=== PATIENT | male | born 2000 | race Caucasian/White ===

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

== ENCOUNTER 2020-02-08 16:56 | Emergency (ER) | payer OTHER, SELFPAY ==
[2020-02-08 17:05] VITALS: BP 134/76; PULSE 86; RESP 19; TEMP 36.9; O2SAT 99; BMI 28.1
[2020-02-08 17:13] LABS: UTC Strep Screen (Rapid) Negative (Negative)
--- NOTE | 2020-02-08 17:15 | HMH.EDUTC ---
[facility] [place] Disposition Clinical Impression: Tonsillitis, Streptococcus exposure Disposition: Home, Self-Care Condition on Discharge: Good Instructions: DI for Strep Throat Prescriptions: Amoxicillin [Amoxicillin 875MG Tab] 875 mg PO Q12H #20 tab Transmission Status: Pending to [id number] Referrals: PCP,No [Primary Care Provider] - Time of Disposition: 17:21 Medical Decision Making - Louie Inquiry Pt receiving controlled substance: No Vital Signs: 02/08/20 17:05 Temperature 98.4 F Temperature Source Oral Pulse Rate [Radial] 86 Respiratory Rate 19 Blood Pressure [Right Arm] 134/76 Blood Pressure Mean [Right Arm] 95 Blood Pressure Source [Right Arm] Automatic Cuff Blood Pressure Position [Right Arm] Sitting 02 Sat by Pulse Oximetry 99 Oxygen Delivery Method Room Air - Lab Data Lab results reviewed: Yes: I reviewed the patient's lab results. Lab Results 02/08/20 17:07: Strep Scn Rapid Clinic Negative Orders (Tests/Meds): ORDERS Category Date Time Status Strep Screen Confirmation Stat Micro 02/08/20 17:07 Received [facility] [place] HPI - General Stated complaint: Sore throat, cough Time Seen by Provider: 02/08/20 17:15 Mode of Arrival: Ambulatory Source of Information: Patient Limitations: No Limitations Description of Symptoms (Recalled from Triage Doc. by RN): Sore throat. States that he has been exposed to strep recently HEENT Symptoms (Recalled from RN notes): Yes Resp Symptoms (Recalled from RN notes): No Skin Symptoms (Recalled from RN notes): No MS Symptoms (Recalled from RN notes): No Functional Status (Recalled from RN notes): wnl - History of Present Illness Provider Complaint: Sore throat X 3 days. No fever, but boyfriend and sister both have strep. Sister also tested positive for COVID19 but he got tested yesterday at so that test is already pending. Boyfriend diagnosed with strep yesterday. Sore throat worse at night. Mild cough. No loss of sense of taste or smell. Onset (ago): day(s) (3) Location: mouth Radiation: non-radiation Relieving factors: none Exacerbating factors: none Associated symptoms: cough Treatments prior to arrival: none - Related Data Previous Rx's Medication Instructions Recorded Amoxicillin [Amoxicillin 875MG 875 mg PO Q12H #20 tab 02/08/20 Tab] Allergies Allergy/AdvReac Type Severity Reaction Status Date / Time No Known Allergies Allergy Unverified 05/09/17 15:06 - Worker's Comp Is this a Worker's Comp case?: No [facility] History - Hepatitis A Screen Drug use history?: No High risk sexual behaviors?: No History of sexually transmitted infection?: No Currently employed?: No Childcare worker?: No Do you have indoor plumbing?: Yes Do you have electricity?: Yes Attestation statement:: This patient has been screened for Hepatitis A risk factors. I have reviewed the patient's past medical history: No - Social History Alcohol Intake: never Occupational Status: other ROS Obtained: Yes All systems reviewed & no additional complaints - Constitutional Constitutional: Denies body ache, Denies chills, Denies fever(s) - ENT Ears, Nose, Mouth, and Throat: Reports sore throat - Respiratory Respiratory: Yes cough Physical Exam - General General appearance: alert, in no apparent distress - Head Head exam: atraumatic, normocephalic, normal inspection - Eye Eye exam: Present: normal appearance, PERRL, EOMI - ENT ENT exam: Present: normal exam, normal oropharynx, mucous membranes moist, TM's normal bilaterally, normal external ear exam - Expanded ENT Exam Throat exam: Present: tonsillar erythema, tonsillomegaly - Neck Neck exam: Present: normal inspection, full ROM, trachea midline. Absent: meningismus, lymphadenopathy - Chest Chest inspection: Present: normal inspection, symmetric chest wall rise. Absent: tenderness - Respiratory Respiratory exam: Present: normal lung sounds bilaterall
[2020-02-08 17:27] VITALS: BP 134/76; PULSE 86; RESP 19; TEMP 36.9; O2SAT 99
== END 2020-02-08 17:28 | disposition home or self-care (01) ==
PROVIDERS: Emergency Provider Physician Assistant
DX: J03.90 Acute tonsillitis, unspecified (principal); Z20.818 Contact with and (suspected) exposure to other bacterial communicable diseases
CPT/HCPCS: 87880; 99201

== ENCOUNTER 2021-06-01 15:32 | Emergency (ER) | payer OTHER, SELFPAY ==
[2021-06-01 17:19] VITALS: BP 138/90; PULSE 108; RESP 16; TEMP 37.1; O2SAT 97; BMI 34.4
--- NOTE | 2021-06-01 17:24 | HMH.EDUTC ---
[facility] [place] Clinical Impression: Otitis media Qualifiers: Otitis media type: unspecified Laterality: left Qualified Code(s): H66.92 - Otitis media, unspecified, left ear Disposition: Home, Self-Care Condition on Discharge: Good Instructions: Middle Ear Infection, Methylprednisolone, Amoxicillin and Clavulanic Acid Additional Instructions: *Monitor Temp, Over the counter Motrin or Tylenol as directed/as needed Tylenol every 4 hours and Motrin every 6 hours (as long as your family doctor has told you that you can take it) for fever or pain. and straight to ER if unable to lower temp less than 101.0 after medication given Take medication as prescribed *Sleep elevated *Humidifier/Vaporizer *Flonase 2 sprays in each nostril daily but be aware that it may take 2-3 days before you notice improvement return if needed Follow up IMMEDIATELY for new or worsening symptoms or no Noticeable improvement over the next 48-72 hours. 911 for difficulty breathing or swallowing Prescriptions: Amoxicillin/Potassium Clav [Augmentin 875-125 Tablet] 1 tab PO Q12H 10 Days #20 tab Transmission Status: Pending to [facility] Fluticasone Propionate [Flonase 50mcg nasal spray 16gm] 1 spr NS DAILY #1 each Transmission Status: Pending to [facility] methylPREDNISolone [Medrol 4mg tab] 4 mg PO DIRECTED #21 tab Transmission Status: Pending to [facility] Referrals: Provider,Referral, MD [Primary Care Provider] - As needed Time of Disposition: 17:32 Medical Decision Making - Louie Inquiry Pt receiving controlled substance: No Louie was queried for this patient: No Vital Signs: 06/01/21 17:19 Temperature 98.7 F Temperature Source Oral Pulse Rate [Right Radial] 108 H Respiratory Rate 16 Blood Pressure [Right Arm] 138/90 Blood Pressure Mean [Right Arm] 106 Blood Pressure Source [Right Arm] Automatic Cuff Blood Pressure Position [Right Arm] Sitting 02 Sat by Pulse Oximetry 97 Oxygen Delivery Method Room Air [facility] [place] - General Stated complaint: cough, runny nose, congestion, hearing loss Time Seen by Provider: 06/01/21 17:24 Mode of Arrival: Ambulatory Source of Information: Patient Limitations: No Limitations Description of Symptoms (Recalled from Triage Doc. by RN): C/O left ear pain HEENT Symptoms (Recalled from RN notes): Yes (Left ear pain) Resp Symptoms (Recalled from RN notes): No Skin Symptoms (Recalled from RN notes): No MS Symptoms (Recalled from RN notes): No Functional Status (Recalled from RN notes): n/a - History of Present Illness Provider Complaint: Patient states that he has been having some sinus congestion and pain in his left ear State that for the last several days he has been having muffled hearing in his left ear and pain that has continued to get worse State that today he was still having pain in his ear so he came in - Related Data Previous Rx's Medication Instructions Recorded sertraline 100 mg tablet 100 mg PO DAILY #90 tab 05/05/21 Amoxicillin/Potassium Clav 1 tab PO Q12H 10 Days #20 tab 06/01/21 [Augmentin 875-125 Tablet] Fluticasone Propionate [Flonase 1 spr NS DAILY #1 each 06/01/21 50mcg nasal spray 16gm] methylPREDNISolone [Medrol 4mg 4 mg PO DIRECTED #21 tab 06/01/21 tab] Allergies Allergy/AdvReac Type Severity Reaction Status Date / Time No Known Allergies Allergy Unverified 05/06/20 12:54 - Worker's Comp Is this a Worker's Comp case?: No [facility] History - Hepatitis A Screen Drug use history?: No High risk sexual behaviors?: No History of sexually transmitted infection?: No Currently employed?: No Childcare worker?: No Do you have indoor plumbing?: Yes Do you have electricity?: Yes Attestation statement:: This patient has been screened for Hepatitis A risk factors. I have reviewed the patient's past medical history: Yes - Social History Smoking Status: Current every day smoker Tobacco Type: cigarettes (about 2
[2021-06-01 17:51] VITALS: BP 138/90; PULSE 108; RESP 16; TEMP 37.1; O2SAT 97
== END 2021-06-01 17:52 | disposition home or self-care (01) ==
PROVIDERS: Emergency Provider Nurse Practitioner
DX: H66.92 Otitis media, unspecified, left ear (principal); F17.290 Nicotine dependence, other tobacco product, uncomplicated
CPT/HCPCS: 99202; G0463

== ENCOUNTER → 2021-06-03 10:12 | Outpatient (CLI) | payer OTHER, SELFPAY | PROVIDERS: Visit Provider Nurse Practitioner | DX: U07.1 COVID-19 (principal) | CPT/HCPCS: C9803; U0003; U0005 ==

== ENCOUNTER → 2021-06-09 10:29 | Outpatient (CLI) | payer OTHER, SELFPAY | PROVIDERS: Visit Provider Specialist | DX: G47.30 Sleep apnea, unspecified (principal); R06.83 Snoring | CPT/HCPCS: 95806 ==

== ENCOUNTER 2021-12-10 13:26 | Emergency (ER) | payer OTHER, SELFPAY ==
[2021-12-10 13:26] VITALS: BP 136/74; PULSE 67; RESP 19; TEMP 37.1; O2SAT 99; BMI 28.5
--- NOTE | 2021-12-10 14:00 | HMH.EDUTC ---
[facility] – [place] Disposition Clinical Impression: Poison madeline dermatitis Disposition: Home, Self-Care Condition on Discharge: Good Instructions: Poison Madeline, Poison [place], Poison [place], DI for Poison Madeline Allergy Additional Instructions: Start oral steriods tomorrow Over the counter Benadryl may help with itching Oatmeal bathes may help to dry the rash Calamine lotion may help to dry the rash Return if needed Straight to ER if any life threatening symptoms Prescriptions: methylPREDNISolone [Medrol 4mg tab] 4 mg PO DIRECTED #21 tab Transmission Status: Received by [facility] Referrals: Provider,Referral, [Primary Care Provider] - As needed Time of Disposition: 14:06 Medical Decision Making - Luoie Inquiry Pt receiving controlled substance: No Louie was queried for this patient: No Vital Signs: 12/10/21 13:26 12/10/21 14:10 Temperature 98.7 F 98.7 F Temperature Source Oral Pulse Rate 67 Pulse Rate [Left Radial] 67 Respiratory Rate 19 19 Blood Pressure 136/74 Blood Pressure [Right Arm] 136/74 Blood Pressure Mean [Right Arm] 94 Blood Pressure Source [Right Arm] Automatic Cuff Blood Pressure Position [Right Arm] Sitting 02 Sat by Pulse Oximetry 99 Oxygen Delivery Method Room Air Room Air Orders (Tests/Meds): ED MEDICATIONS Discontinued Medications Generic Name Dose Route Start Last Admin Trade Name Lacie PRN Reason Stop Dose Admin Methylprednisolone Sodium Succinate 125 mg 12/10/21 14:03 12/10/21 14:13 Methylprednisolone Sod Succ 125mg Vial IM 12/10/21 14:04 125 mg ONCE ONE Administration [facility] [place] HPI - General Stated complaint: poison madeline Time Seen by Provider: 12/10/21 14:00 Mode of Arrival: Ambulatory Source of Information: Patient Limitations: No Limitations Description of Symptoms (Recalled from Triage Doc. by RN): c/o poison madeline all over since yesterday HEENT Symptoms (Recalled from RN notes): No Resp Symptoms (Recalled from RN notes): No Skin Symptoms (Recalled from RN notes): Yes MS Symptoms (Recalled from RN notes): No Functional Status (Recalled from RN notes): na - History of Present Illness Provider Complaint: Patient states that he has poison madeline all over his arms and starting to spread on his neck and face State that he wanted to come in and get it treated before it got as bad as it did before and was on his lips - Related Data Previous Rx's Medication Instructions Recorded sertraline 100 mg tablet 100 mg PO DAILY #90 tab 07/08/21 methylPREDNISolone [Medrol 4mg 4 mg PO DIRECTED #21 tab 12/10/21 tab] Allergies Allergy/AdvReac Type Severity Reaction Status Date / Time No Known Allergies Allergy Verified 07/07/21 10:30 - Worker's Comp Is this a Worker's Comp case?: No [facility] History - Hepatitis A Screen Attestation statement:: This patient has been screened for Hepatitis A risk factors. I have reviewed the patient's past medical history: Yes Medical History: Reports:: Anxiety, Depression Other Medical History: Reports: Other (sivan) Other Surgeries: Yes: Other Amputation: No Fractures: No Comment: oral surgery-wisdom teeth - Social History Smoking Status: Current every day smoker Tobacco Type: cigarettes Alcohol Intake: never Alcohol Intake Frequency:: other Substance Use Type: denies use Occupational Status: employed Housing: house Household Members: significant other - Psychiatric History Pschychiatric History:: Reports:: Anxiety, Depression Family Hx:: No significant family history ROS Obtained: Yes All systems reviewed & no additional complaints, Yes Systems reviewed as appropriate & no additional complaints - Constitutional Constitutional: Reports system reviewed and no additional complaints, except as docu - ENT Ears, Nose, Mouth, and Throat: Reports system reviewed and no additional complaints, except as docu - Cardiovascular Cardiovascular: Reports system reviewed and no additional complaints, exce
[2021-12-10 14:10] VITALS: BP 136/74; PULSE 67; RESP 19; TEMP 37.1; O2SAT 99
== END 2021-12-10 14:35 | disposition home or self-care (01) ==
PROVIDERS: Emergency Provider Nurse Practitioner
DX: L23.7 Allergic contact dermatitis due to plants, except food (principal); R06.02 Shortness of breath; F32.A Depression, unspecified; F41.9 Anxiety disorder, unspecified; F17.210 Nicotine dependence, cigarettes, uncomplicated; Z79.52 Long term (current) use of systemic steroids
CPT/HCPCS: 96372; 99213; G0463

== ENCOUNTER 2022-12-11 15:42 | Emergency (ER) | payer OTHER, SELFPAY ==
[2022-12-11 15:50] VITALS: BP 134/89; PULSE 97; RESP 20; TEMP 36.9; O2SAT 98; BMI 40.3
--- NOTE | 2022-12-11 15:57 | EXP.UTC ---
Discharge Plan Disposition Patient Disposition: Home, Self-Care Condition: Good Prescriptions Prescriptions: New amoxicillin 875 mg tablet 875 mg PO BID Qty: 20 0RF ciprofloxacin-dexamethasone [Ciprodex] 0.3-0.1 % drops,suspension 4 drp otic (ear) BID 7 Days Qty: 7.5 0RF Rx Instructions: left ear Referrals Follow up/Referrals: Provider,Referral, MD [Primary Care Provider] - See instructions Activity Restrictions/Add. Instructions Additional Instructions/Restrictions: Use drops as prescribed Take oral medication as prescribed FOllow up with your Family Doctor if no improvement or any worsening of symptoms Return if needed Clinical Impressions Clinical Impression: Otitis media Qualifiers: Otitis media type: in diseases classified elsewhere Laterality: left Qualified Code(s): H67.2 - Otitis media in diseases classified elsewhere, left ear Instructions Patient Instructions: Middle Ear Infection, Otitis Externa Discharge ED Provider: Promise Jesus [facility] [place] General Stated complaint: ear pain Mode of Arrival: Ambulatory Source of Information: Patient Limitations: No Limitations Time Seen by Provider: 12/11/22 15:59 Description of Symptoms (Recalled from Triage Doc. by RN): PATIENT C/O LEFT EAR PAIN THAT STARTED MONDAY NIGHT HEENT Symptoms (Recalled from RN notes): Yes Resp Symptoms (Recalled from RN notes): No Skin Symptoms (Recalled from RN notes): No MS Symptoms (Recalled from RN notes): No Functional Status (Recalled from RN notes): WNL History of Present Illness Provider Complaint: Patient states that he was recently on vacation and on he started having pain in his left ear States that he thought at first it may have been swimmers ear so he started using the drops but it hasnt got any better and has continued to get worse so he came in Related Data Previous Rx's Medication Instructions Recorded amoxicillin 875 mg tablet 875 mg PO BID #20 tabs 12/11/22 ciprofloxacin 0.3 %-dexamethasone 4 drp otic (ear) BID 7 days #7.5 mL 12/11/22 0.1 % ear drops,suspension (Ciprodex) Allergies Allergy/AdvReac Type Severity Reaction Status Date / Time No Known Allergies Allergy Verified 07/20/22 11:01 Worker's Comp Is this a Worker's Comp case?: No [facility] Disclaimer: The information contained in this section may have been updated after the patient was seen, as this information can be updated by other users. Medical History (Updated 12/11/22 @ 16:04 by Promise Jesus APRN) Generalized anxiety disorder Social History (Updated 01/21/22 @ 10:48 by Lilly Carlos APRN) Smoking Status: Current every day smoker tobacco type: cigarettes quit status: considering quitting second hand exposure: No alcohol intake: never substance use type: denies use current occupational status: employed Travel in the last 8 weeks: None household members: significant other housing: house marital status: single number of children: 0 ROS Obtained: Yes All systems reviewed & no additional complaints except as documented and Yes Systems reviewed as appropriate & no additional complaints except as documented Constitutional Constitutional: Reports system reviewed and no additional complaints, except as documented and Reports as per HPI ENT Ears, Nose, Mouth, and Throat: Reports system reviewed and no additional complaints, except as documented, Reports as per HPI and Reports otalgia Cardiovascular Cardiovascular: Reports system reviewed and no additional complaints, except as documented and Reports as per HPI Respiratory Respiratory: Reports system reviewed and no additional complaints, except as documented and Reports as per HPI Gastrointestinal Gastrointestingal: Reports system reviewed and no additional complaints, except as documented and as per HPI Physical Exam General General appearance: alert and in no apparent distress Expanded ENT Exam TM/Canal exam: Left TM: e
[2022-12-11 15:58] VITALS: BP 134/89; PULSE 97; RESP 20; TEMP 36.9; O2SAT 98
== END 2022-12-11 16:07 | disposition home or self-care (01) ==
PROVIDERS: Emergency Provider Nurse Practitioner
DX: H66.92 Otitis media, unspecified, left ear (principal); F17.210 Nicotine dependence, cigarettes, uncomplicated; F41.1 Generalized anxiety disorder
CPT/HCPCS: 99212; 99214; G0463

== ENCOUNTER 2023-08-01 18:14 | Outpatient (CLI) | payer BC, OTHER, SELFPAY ==
[2023-08-01 17:50] LABS: Microscopic, Urine URINE MICROSCOPIC (MICROSCOPIC)
[2023-08-01 18:26] LABS: Basophils # 0.1 K/mm3 (0-0.2); Basophils % 0.9 % (0.1-2.0); Eosinophils # 0.1 K/mm3 (0.0-0.4); Eosinophils % 1.7 % (0.1-12.0); Hematocrit 46.7 % (42.0-52.0); Hemoglobin 15.4 g/dL (14.1-18.0); Lymphocytes # 2.4 K/mm3 (0.7-4.5); Lymphocytes % 31.2 % (10-50); Mean Corpuscular HGB Conc 33.1 g/dL (31.8-35.4); Mean Corpuscular Hemoglobin 31.2 pg (27.0-31.2); Mean Corpuscular Volume 94.3 fl (80-94); Mean Platelet Volume 8.7 fl (7.4-10.4); Monocytes # 0.4 K/mm3 (0.1-1.0); Monocytes % 5.7 % (1.7-9.3); Neutrophils # 4.7 K/mm3 (1.8-7.8); Neutrophils % 60.5 % (37.0-80.0); Platelet Count 398 K/mm3 (142-424); Red Blood Count 4.95 M/mm3 (4.60-6.20); Red Cell Distribution Width 13.5 % (11.5-17.5); White Blood Count 7.8 K/mm3 (4.8-10.8)
[2023-08-01 18:36] LABS: Alanine Aminotransferase 41 U/L (12-78); Albumin Level 4.8 g/dl (3.5-5.0); Albumin/Globulin Ratio 1.7 (1.1-1.8); Alkaline Phosphatase 78 U/L (38-126); Anion Gap 13.3 mEq/L (5-15); Appearance,Urine CLEAR (Clear); Aspartate Amino Transferase 31 U/L (17-59); Bilirubin,Total 0.5 mg/dl (0.2-1.3); Bilirubin,Urine Negative (Negative); Blood Urea Nitrogen 13 mg/dl (9-20); Blood, Urine Negative (Negative); Carbon Dioxide 26 mmol/L (22.0-30.0); Chloride 106 mmol/L (98-107); Chol/HDL Ratio 7.9 (1-3.5); Cholesterol 222 mg/dl (140-200); Color,Urine YELLOW (Yellow); Estimated Glomerular Filt Rate 104 ml/min (>60); GFR (African American) 125 ML/MIN (>60); Globulin 2.8 g/dL (1.3-3.2); Glucose 96 mg/dl (74-100); Glucose,Urine (UA) Negative (Negative); HDL Cholesterol 28 mg/dl (40-60); Ketones,Urine Negative (Negative); Leukocyte Esterase,Urine Negative (Negative); Nitrate,Urine Negative (Negative); Potassium 4.3 mmoL/L (3.5-5.1); Protein,Urine Negative (Negative); Sodium 141 mmol/L (136-145); Specific Gravity, Urine >= 1.030 (1.005-1.030); Total Protein,Serum 7.6 g/dl (6.3-8.2); Triglycerides 194 mg/dl (30-150); Urobilinogen,Urine 0.2 EU/dl (0.2); VLDL Cholesterol 39 mg/dL (0-40)
[2023-08-01 18:45] LABS: Hemoglobin A1C 5.4 % (4.0-6.0)
[2023-08-01 18:49] LABS: Direct LDL Cholesterol 139.08 mg/dL (100-129)
[2023-08-01 18:56] LABS: 25-OH Vitamin D, Total 23.6 ng/mL (30-100)
[2023-08-01 18:59] LABS: Calcium Oxalate Crystals,Urine 1+ /lpf; Squamous Epithelial Cell,Urine Occasional #/hpf (0-5); WBC,Urine Occasional #/hpf (0-3)
[2023-08-01 19:08] LABS: Thyroid Stimulating Hormone 1.24 uIU/mL (0.465-4.68)
[2023-08-01 19:27] LABS: Vitamin B12 450 pg/mL (239-931)
[2023-08-01 19:52] LABS: Iron 127 ug/dL (49-181)
[2023-08-01 20:01] LABS: Total Iron Binding Capacity 419 ug/dL (261-462)
[2023-08-01 20:28] LABS: Ferritin 30.8 ng/ml (17.9-464)
[2023-08-03 09:33] LABS: HBsAg Screen Negative (Negative); HCV Ab Non Reactive (Non Reactive); Hep A Ab, IGM Negative (Negative); Hep B Core Ab, IgM Negative (Negative)
[2023-08-04 07:43] LABS: Neisseria gonorrhoeae, NAA Negative (Negative)
== END 2023-08-01 23:59 ==
LOC: LAB.DROPOF 18:15
PROVIDERS: PCP Nurse Practitioner Family; Visit Provider Nurse Practitioner Family
DX: F41.1 Generalized anxiety disorder (principal); R53.83 Other fatigue; Z79.899 Other long term (current) drug therapy
CPT/HCPCS: 80053; 80061; 80074; 81001; 82306; 82607; 82728; 83036; 83540; 83550; 84439; 84443; 85025; 87086; 87491; 87591

== ENCOUNTER 2023-09-04 07:48 | Day surgery (SDC) | payer BC, OTHER, SELFPAY ==
[2023-09-01 11:47] VITALS: BMI 36.1
[2023-09-04] VITALS (9 sets, daily range): BP systolic 99–151; BP diastolic 74–90; PULSE 70–105; RESP 16–18; TEMP 36.3–36.8; O2SAT 94–98
[2023-09-04] MEDS: LACTATED RINGERS 1000ML 1,000 ML 25 ML IV (08:16)
--- NOTE | 2023-09-04 08:22 | P.PNANES_ITS ---
[facility] Disclaimer: The information contained in this section may have been updated after the patient was seen, as this information can be updated by other users. Medical History Hypertrophy of tonsils Poison ross dermatitis Otitis media Streptococcus exposure Tonsillitis Generalized anxiety disorder Surgical History H/O wisdom tooth extraction Family History Other Diabetes No significant family history Social History Smoking Status: Current every day smoker tobacco type: cigarettes and e- cigarettes quit status: considering quitting second hand exposure: No alcohol intake: never substance use type: denies use current occupational status: employed Travel in the last 8 weeks: None household members: significant other housing: house marital status: single number of children: 0 [facility] Anesthesia Checklist Patient Identification Patient Identification: Arm Band Structural Data Admitted From: Home Planned Operative Procedure/s: Tonsillectomy Consent for Planned Operative Procedure(s) Verified: Yes Verified Documents: Surgical Consent and History and Physical NPO Status Verified Time NPO: 00:00 Additional verifications Anesthesia Reactions: No Hx Blood Transfusions: No Blood Transfusion Reaction: No Airway Assessment Mallampati Score:: Class II C-Spine Mobility Assessed: Yes TMJ Mobility Assessed: Yes Neurological Assessment Level of Consciousness: Awake and Alert Anesthesia Plan Anesthesia Risk discussed: Yes Anesthesia Plan: Verified ASA Class: II Anesthesia Type: General
[2023-09-04] MEDS: BUPIVACAINE 0.5% W/EPI 1:200,000 30ML VIAL 30 ML IJ (09:33)
--- NOTE | 2023-09-04 09:52 | P.OP_ITS ---
Date of procedure: 09/04/23 Pre-op Diagnosis:: Chronic tonsillitis Post-op Diagnosis:: Same Procedure performed:: Tonsillectomy Surgeon:: Kalyan Gomez III, MD Beauty Operator Apprentice(s):: None DESIGN ENGINEERING SPECIALIST:: Agustín Krause Anesthesia: GETA Estimated blood loss (mL): 25 Operative findings:: Enlarged tonsils Operative note:: The patient was brought to the operating room placed under general endotracheal anesthesia with IV sedation. They were then placed in the Tiffany position and a McIvor mouthgag was used to better expose the oral cavity and oropharynx. The soft palate was palpated and noted to be intact through all planes. The adenoid pad was inspected and noted to be nonobstructing. The right tonsil was then dissected from its underlying fascial and muscular attachments using elec trocautery dissection. Any bleeding spots were spot coagulated. A similar procedure was performed on the left side with similar results. The wound was then irrigated with sterile water solution. After observation and no evidence any further bleeding, I injected half percent Marcaine with epinephrine into the tonsillar fossae approximately 3 ccs were used. The patient stomach contents were aspirated clear. He was awakened in the operating room taken recovery room in good condition. Condition: stable Disposition: PACU Complications:: None
--- NOTE | 2023-09-04 09:53 | EXP.ANES.I ---
[facility] Anesthesia Record Part I Anesthesia Record I Intake, IV Amount: 1,000 Hydration: Adequate Estimated blood loss (mL): 20 Urine output (mL): 0 Blood Pressure: 149/85 SaO2: 96 Pulse Rate: 105 Airway Patency: Patent Respiratory Rate: 16 Temperature: 97.5 F Patient is:: Awake and Stable Stable to PACU at:: 09:50
--- NOTE | 2023-09-04 10:25 | SUR.PHASEI ---
1021- Bedside report given to Hemanth Flores RN. VSS, no s/s of distress noted.
--- NOTE | 2023-09-04 10:51 | EXP.ANES.II ---
[facility] Anesthesia Record Part II Anesthesia Record Part II Discharge Time: 10:20 Destination: Surgical Day Care (OP Surgery) PACU nurse assessment reviewed?: Yes Patient Condition:: Good Anesthesia Complications:: None Swallowing reflex intact?: Yes Airway Patency: Patent Cyanosis?: No Blood Pressure: 146/90 SaO2: 95 Respiratory Rate: 18 Pulse Rate: 77 Temperature: 97.3 F Mental Status: Alert & Oriented Pain level:: 0 Nausea and/or vomitting:: None Intake, IV Amount: 0 Hydration: Adequate
== END 2023-09-04 10:36 | disposition home or self-care (01) ==
PROVIDERS: PCP Nurse Practitioner Family; Visit Provider Otolaryngology
PROC: (CPT 42826; principal; 2023-09-04 09:45)
DX: J35.01 Chronic tonsillitis (principal)
CPT/HCPCS: 42826; 96374; J2710

== ENCOUNTER 2024-07-01 13:30 | Outpatient (CLI) | payer BC, OTHER, SELFPAY ==
[2024-06-27 12:41] LABS: Microscopic, Urine URINE MICROSCOPIC (MICROSCOPIC)
[2024-06-27 13:20] LABS: Basophils # 0.1 K/mm3 (0-0.2); Basophils % 0.8 % (0.1-2.0); Eosinophils # 0.1 K/mm3 (0.0-0.4); Eosinophils % 1.5 % (0.1-12.0); Hematocrit 45.1 % (42.0-52.0); Hemoglobin 15.2 g/dL (14.1-18.0); Lymphocytes # 2.1 K/mm3 (0.7-4.5); Lymphocytes % 32.5 % (10-50); Mean Corpuscular HGB Conc 33.7 g/dL (31.8-35.4); Mean Corpuscular Hemoglobin 29.9 pg (27.0-31.2); Mean Corpuscular Volume 88.6 fl (80-94); Mean Platelet Volume 9.7 fl (7.4-10.4); Monocytes # 0.5 K/mm3 (0.1-1.0); Monocytes % 8.3 % (1.7-9.3); Neutrophils # 3.7 K/mm3 (1.8-7.8); Neutrophils % 56.4 % (37.0-80.0); Platelet Count 375 K/mm3 (142-424); Red Blood Count 5.09 M/mm3 (4.60-6.20); Red Cell Distribution Width 12.7 % (11.5-17.5); White Blood Count 6.5 K/mm3 (4.8-10.8)
[2024-06-27 13:29] LABS: Appearance,Urine CLEAR (Clear); Bilirubin,Urine Negative (Negative); Blood, Urine Negative (Negative); Color,Urine YELLOW (Yellow); Glucose,Urine (UA) Negative (Negative); Ketones,Urine Negative (Negative); Leukocyte Esterase,Urine Negative (Negative); Nitrate,Urine Negative (Negative); PH,Urine 5.5 (5.0-8.5); Protein,Urine Negative (Negative); Specific Gravity, Urine >= 1.030 (1.005-1.030); Urobilinogen,Urine 0.2 EU/dl (0.2)
[2024-06-27 13:43] LABS: Alanine Aminotransferase 48 U/L (12-78); Albumin/Globulin Ratio 2.1 (1.1-1.8); Alkaline Phosphatase 71 U/L (38-126); Anion Gap 16.7 mEq/L (5-15); Aspartate Amino Transferase 33 U/L (17-59); Bilirubin,Total 0.4 mg/dl (0.2-1.3); Blood Urea Nitrogen 12 mg/dl (9-20); Calcium 9.7 mg/dl (8.4-10.2); Carbon Dioxide 24 mmol/L (22.0-30.0); Chloride 106 mmol/L (98-107); Chol/HDL Ratio 7.1 (1-3.5); Cholesterol 198 mg/dl (140-200); Estimated Glomerular Filt Rate 103 ml/min (>60); GFR (African American) 124 ML/MIN (>60); Globulin 2.4 g/dL (1.3-3.2); Glucose 85 mg/dl (74-100); HDL Cholesterol 28 mg/dl (40-60); Potassium 4.7 mmoL/L (3.5-5.1); Sodium 142 mmol/L (136-145); Total Protein,Serum 7.4 g/dl (6.3-8.2); Triglycerides 147 mg/dl (30-150); VLDL Cholesterol 29 mg/dL (0-40)
[2024-06-27 13:55] LABS: Direct LDL Cholesterol 128.54 mg/dL (100-129); Hemoglobin A1C 5.3 % (4.0-6.0)
[2024-06-27 13:57] LABS: Bacteria,Urine Trace /lpf; Free T4 (Free Thyroxine) 0.58 ng/dl (0.78-2.19); Mucus,Urine 2+ /lpf; Squamous Epithelial Cell,Urine Occasional #/hpf (0-5); WBC,Urine Occasional #/hpf (0-3)
[2024-06-27 13:58] LABS: 25-OH Vitamin D, Total 40.1 ng/mL (30-100)
[2024-06-27 14:12] LABS: Thyroid Stimulating Hormone 1.16 uIU/mL (0.465-4.68)
[2024-06-27 14:22] LABS: HIV Combo NEGATIVE (Negative)
[2024-06-27 14:31] LABS: Vitamin B12 380 pg/mL (239-931)
[2024-06-28 17:00] LABS: Chlamydia trachomatis Negative (Negative); Neisseria gonorrhoeae Negative (Negative); Trichomonas vaginalis Negative (Negative)
== END 2024-07-01 23:59 | disposition home or self-care (01) ==
LOC: LAB.DROPOF 13:31
PROVIDERS: PCP Nurse Practitioner Family; Visit Provider Nurse Practitioner Family
DX: Z00.00 Encounter for general adult medical examination without abnormal findings (principal); R41.3 Other amnesia; E11.9 Type 2 diabetes mellitus without complications; I10 Essential (primary) hypertension; G47.33 Obstructive sleep apnea (adult) (pediatric); R53.83 Other fatigue; F41.1 Generalized anxiety disorder; Z11.3 Encounter for screening for infections with a predominantly sexual mode of transmission; Z13.220 Encounter for screening for lipoid disorders; Z11.59 Encounter for screening for other viral diseases; Z91.89 Other specified personal risk factors, not elsewhere classified
CPT/HCPCS: 80053; 80061; 81001; 82306; 82607; 83036; 84439; 84443; 85025; 87086; 87389; 87491; 87591; 87661